=== PATIENT | female | born 1990 | race African-American/Black ===

== ENCOUNTER 2017-01-15 02:55 | Emergency (ER) | payer SELFPAY ==
[~2017-01-15] VITALS: Ht 172.7 cm; Wt 60.0 kg
[~2017-01-15 02:55] MED LIST: Z.0.NO CURRENT MEDS
[2017-01-15 02:56] VITALS: BP 117/71; PULSE 58; RESP 16; TEMP 97.9; O2SAT 100
[2017-01-15 04:40] LABS: AUTOMATED NEUTROPHIL # 4.3 TH/MM3 (1.8-7.7); BASOPHIL # 0.1 TH/MM3 (0-0.2); BASOPHIL % 0.7 % (0.0-2.0); EOSINOPHIL # 0.2 TH/MM3 (0-0.4); HEMO FLAGS DIFF FINAL; LYMPH % 35.8 % (9.0-44.0); LYMPHOCYTE # 2.7 TH/MM3 (1.0-4.8); MEAN CELL VOLUME 83.1 FL (80.0-100.0); MEAN CORPUSCULAR HEMOGLOBIN 27.1 PG (27.0-34.0); MEAN CORPUSCULAR HGB CONC 32.6 % (32.0-36.0); NEUT % 55.5 % (16.0-70.0); PLATELET COUNT 257 TH/MM3 (150-450); RED BLOOD COUNT 4.94 MIL/MM3 (4.00-5.30); RED CELL DISTRIBUTION WIDTH 13.7 % (11.6-17.2); WHITE BLOOD COUNT 7.7 TH/MM3 (4.0-11.0)
[2017-01-15 04:48] LABS: BACTERIA, URINE RARE /hpf; BLOOD, URINE TRACE (NEG); COMMENT (UR) CULT NOT INDICATED; CULTURE IF INDICATED CULT NOT INDICATED; GLUCOSE,URINE NEG (NEG); KETONE, URINE 10 mg/dL (NEG); MUCUS URINE FEW /lpf (OCC); NITRITE,URINE NEG (NEG); SQUAMOUS EPITHELIAL CELL URINE 1 /hpf (0-5); URINE COLOR LIGHT-YELLOW (YELLW/STRAW)
[2017-01-15 04:54] LABS: ANION GAP 11 MEQ/L (5-15); AST (GOT) 9 U/L (15-37); BLOOD UREA NITROGEN 7 MG/DL (7-18); CHLORIDE 105 MEQ/L (98-107); GLOMERULAR FILTRATION RATE 104 ML/MIN (>89); POTASSIUM 3.4 MEQ/L (3.5-5.1); SODIUM (NA) 140 MEQ/L (136-145)
[2017-01-15 04:55] LABS: ALT (GPT) 16 U/L (10-53)
[2017-01-15 04:57] LABS: ALKALINE PHOSPHATASE 54 U/L (45-117); TOTAL BILIRUBIN ADULT 0.7 MG/DL (0.2-1.0)
--- NOTE | 2017-01-15 05:07 | PD ---
HPI Chief Complaint: Abdominal Pain Time Seen by Provider: 04:12 Travel History International Travel<30 days: No Contact w/Intl Traveler<30days: No Traveled to known affect area: No History of Present Illness HPI To 26 year-old woman who presents to the emergency department complaining of abdominal pain. She's had right sided abdominal pain, more in the upper abdomen , with decreased appetite and early fullness for the past day or 2. She has bloating feeling, pain is a little worse after eating. No vomiting. She has had some nausea. No urinary symptoms. Her bowel movements are normal. She denies any abnormal vaginal discharge. She has on her menstrual cycle now. She sexually active with women only, to female partners in the past 6 months. He is a history of a diaphragmatic hernia that was repaired as a , but no complications or symptoms since then. History Past Medical History Medical History: Denies Significant Hx Tetanus Vaccination: Unknown Influenza Vaccination: No : 0 Social History Alcohol Use: Yes (SOCIALLY) Tobacco Use: Yes (SOCIALLY/MONTHLY) Allergies-Medications (Allergen,Severity, Reaction): Coded Allergies: No Known Allergies (Verified , 06/05/11) Reported Meds & Prescriptions Reported Meds & Active Scripts Active No Active Prescriptions or Reported Medications Review of Systems Except as stated in HPI: all other systems reviewed are Neg Physical Exam Narrative GENERAL: Well-appearing 26 year-old woman, no acute distress. SKIN: Focused skin assessment warm/dry. NECK: Trachea midline. No JVD. CARDIOVASCULAR: Regular rate and rhythm. No murmur appreciated. RESPIRATORY: No accessory muscle use. Clear to auscultation. Breath sounds equal bilaterally. GASTROINTESTINAL: Abdomen flat and soft. There is a large scar on the right upper abdomen. She has some right upper abdominal tenderness with guarding, as well as some right lower quadrant tenderness. She has negative Rovsing's, negative psoas sign but a positive obturator sign. Negative Gordon's. MUSCULOSKELETAL: No obvious deformities. No edema. NEUROLOGICAL: Awake and alert. No obvious cranial nerve deficits. Motor grossly within normal limits. Normal speech. PSYCHIATRIC: Appropriate mood and affect; insight and judgment normal. Data Data Last Documented VS Vital Signs Date Time Temp Pulse Resp B/P Pulse Ox O2 Delivery O2 Flow Rate FiO2 01/15/17 06:37 97.9 67 20 93/55 100 01/15/17 02:56 Room Air Orders Complete Blood Count With Diff (01/15/17 04:13) Comprehensive Metabolic Panel (01/15/17 04:13) Lipase (01/15/17 04:13) Urinalysis - C+S If Indicated (01/15/17 04:13) Iv Access Insert/Monitor (01/15/17 04:13) Ed Urine Pregnancytest Poc (01/15/17 04:13) Ed Poc Ultrasound (01/15/17 ) Us Abdomen Gallbladder (01/15/17 ) Ct Abd/Pel W Iv Contrast(Rout) (01/15/17 ) Diatrizoate Liq ( Gastroview Liq) (01/15/17 06:30) Oral Contrast - Adult (01/15/17 06:31) Labs Laboratory Tests Test 01/15/17 01/15/17 04:15 04:30 White Blood Count 7.7 TH/MM3 Red Blood Count 4.94 MIL/MM3 Hemoglobin 13.4 GM/DL Hematocrit 41.0 % Mean Corpuscular Volume 83.1 FL Mean Corpuscular Hemoglobin 27.1 PG Mean Corpuscular Hemoglobin 32.6 % Concent Red Cell Distribution Width 13.7 % Platelet Count 257 TH/MM3 Mean Platelet Volume 7.5 FL Neutrophils (%) (Auto) 55.5 % Lymphocytes (%) (Auto) 35.8 % Monocytes (%) (Auto) 6.0 % Eosinophils (%) (Auto) 2.0 % Basophils (%) (Auto) 0.7 % Neutrophils # (Auto) 4.3 TH/MM3 Lymphocytes # (Auto) 2.7 TH/MM3 Monocytes # (Auto) 0.5 TH/MM3 Eosinophils # (Auto) 0.2 TH/MM3 Basophils # (Auto) 0.1 TH/MM3 CBC Comment DIFF FINAL Differential Comment Sodium Level 140 MEQ/L Potassium Level 3.4 MEQ/L Chloride Level 105 MEQ/L Carbon Dioxide Level 24.0 MEQ/L Anion Gap 11 MEQ/L Blood Urea Nitrogen 7 MG/DL Creatinine 0.81 MG/DL Estimat Glomerular Filtration 104 ML/MIN Rate Random Glucose 76 MG/DL Calcium Level 9.0 MG/DL Total Bilirubin 0.7 MG/DL Aspartate Amino Transf 9 U/L (AST/SGOT) Alanine Aminotransferase 16 U/L (ALT/SGPT) Alkaline Phosphatase 54 U/L Total Protein 7.0 GM/DL Albumin 3.7 GM/DL Lipase 136 U/L Urine Color LIGHT-YELLOW Urine Turbidity CLEAR Urine pH 6.0 Urine Specific [place] 1.009 Urine Protein NEG mg/dL Urine Glucose (UA) NEG mg/dL Urine Ketones 10 mg/dL Urine Occult Blood TRACE Urine Nitrite NEG Urine Bilirubin NEG Urine Urobilinogen LESS THAN 2.0 MG/DL Urine Leukocyte Esterase SMALL Urine RBC LESS THAN 1 /hpf Urine WBC 2 /hpf Urine Squamous Epithelial 1 /hpf Cells Urine Bacteria RARE /hpf Urine Mucus FEW /lpf Microscopic Urinalysis Comment CULT NOT INDICATED MDM Medical Decision Making Medical Screen Exam Complete: Yes Emergency Medical Condition: Yes Interpretation(s) LABS: CBC: Unremarkable CMP: Unremarkable UA: Unremarkable Differential Diagnosis Cholecystitis, cholelithiasis, appendicitis, gastritis, PID, UTI, other Narrative Course Medical decision making 26 year-old woman presents emergent arm right sided abdominal pain, some tenderness, previous surgery. She seems to be more tender in the right upper quadrant she had some tenderness and guarding in the right lower quadrant as well. I attempted a bedside ultrasound was unable obtain views of the gallbladder. We'll check formal ultrasound, labs, urine, reassess. Patient flat out the oncoming provider at 7 AM, CT pending. Scripts No Active Prescriptions or Reported Meds Christophe Sanchez MD Jan 15, 2017 05:07
--- NOTE | 2017-01-15 06:22 | RADRPT ---
EXAM DATE/TIME: 01/15/2017 05:54 [facility] COMPARISON: No previous studies available for comparison. INDICATIONS : Right upper quadrant pain. MEDICAL HISTORY : Right upper quadrant pain. SURGICAL HISTORY : Diaphramatic hernia repair as infant. ENCOUNTER: Initial ACUITY: 3 days PAIN SCORE: 4/10 LOCATION: Right upper quadrant MEASUREMENTS: LIVER: 16.1 cm length COMMON DUCT: 3 mm RIGHT KIDNEY: 8.4 x 3.7 x 5.9 cm FINDINGS: The gallbladder is intact without any evidence for gallstones, gallbladder wall thickening, or perich olecystic fluid. The visualized liver, head of the pancreas appear grossly intact for technique. The re is a tiny 1.3 cm simple cyst in the right kidney. CONCLUSION: Unremarkable study. Yao Milan MD on January 15, 2017 at 6:19 Board Certified Radiologist. This report was verified electronically.
[2017-01-15] MEDS ORDERED: DIATRIZOATE MEGLUM/DIATRIZOATE SOD 9 ML CUP ONE (06:30)
[2017-01-15 06:37] VITALS: BP 93/55; PULSE 67; RESP 20; TEMP 97.9; O2SAT 100
--- NOTE | 2017-01-15 07:01 | PD ---
Physical Exam Date Seen by Provider: Jan 15, 2017 Time Seen by Provider: 06:59 Narrative The patient is a 26-year-old female was evaluated by Dr. Sanchez. The patient was signed out at [address] of the abdomen and pelvis pending. Please refer to the initial history, physical, diagnostic evaluation, treatment modality plan. Data Data Last Documented VS Vital Signs Date Time Temp Pulse Resp B/P Pulse Ox O2 Delivery O2 Flow Rate FiO2 01/15/17 07:10 16 01/15/17 06:37 97.9 67 93/55 100 01/15/17 02:56 Room Air Orders Complete Blood Count With Diff (01/15/17 04:13) Comprehensive Metabolic Panel (01/15/17 04:13) Lipase (01/15/17 04:13) Urinalysis - C+S If Indicated (01/15/17 04:13) Iv Access Insert/Monitor (01/15/17 04:13) Ed Urine Pregnancytest Poc (01/15/17 04:13) Ed Poc Ultrasound (01/15/17 ) Us Abdomen Gallbladder (01/15/17 ) Ct Abd/Pel W Iv Contrast(Rout) (01/15/17 ) Diatrizoate Liq ( Gastroview Liq) (01/15/17 06:30) Oral Contrast - Adult (01/15/17 06:31) Labs Laboratory Tests Test 01/15/17 01/15/17 04:15 04:30 White Blood Count 7.7 TH/MM3 Red Blood Count 4.94 MIL/MM3 Hemoglobin 13.4 GM/DL Hematocrit 41.0 % Mean Corpuscular Volume 83.1 FL Mean Corpuscular Hemoglobin 27.1 PG Mean Corpuscular Hemoglobin 32.6 % Concent Red Cell Distribution Width 13.7 % Platelet Count 257 TH/MM3 Mean Platelet Volume 7.5 FL Neutrophils (%) (Auto) 55.5 % Lymphocytes (%) (Auto) 35.8 % Monocytes (%) (Auto) 6.0 % Eosinophils (%) (Auto) 2.0 % Basophils (%) (Auto) 0.7 % Neutrophils # (Auto) 4.3 TH/MM3 Lymphocytes # (Auto) 2.7 TH/MM3 Monocytes # (Auto) 0.5 TH/MM3 Eosinophils # (Auto) 0.2 TH/MM3 Basophils # (Auto) 0.1 TH/MM3 CBC Comment DIFF FINAL Differential Comment Sodium Level 140 MEQ/L Potassium Level 3.4 MEQ/L Chloride Level 105 MEQ/L Carbon Dioxide Level 24.0 MEQ/L Anion Gap 11 MEQ/L Blood Urea Nitrogen 7 MG/DL Creatinine 0.81 MG/DL Estimat Glomerular Filtration 104 ML/MIN Rate Random Glucose 76 MG/DL Calcium Level 9.0 MG/DL Total Bilirubin 0.7 MG/DL Aspartate Amino Transf 9 U/L (AST/SGOT) Alanine Aminotransferase 16 U/L (ALT/SGPT) Alkaline Phosphatase 54 U/L Total Protein 7.0 GM/DL Albumin 3.7 GM/DL Lipase 136 U/L Urine Color LIGHT-YELLOW Urine Turbidity CLEAR Urine pH 6.0 Urine Specific [place] 1.009 Urine Protein NEG mg/dL Urine Glucose (UA) NEG mg/dL Urine Ketones 10 mg/dL Urine Occult Blood TRACE Urine Nitrite NEG Urine Bilirubin NEG Urine Urobilinogen LESS THAN 2.0 MG/DL Urine Leukocyte Esterase SMALL Urine RBC LESS THAN 1 /hpf Urine WBC 2 /hpf Urine Squamous Epithelial 1 /hpf Cells Urine Bacteria RARE /hpf Urine Mucus FEW /lpf Microscopic Urinalysis Comment CULT NOT INDICATED MDM Medical Record Reviewed: Yes Supervised Visit with JAENNETTE: No Interpretation(s) Last Impressions Gall Bladder Ultrasound 01/15/17 0000 Signed Impressions: Service Date/Time: Sunday, January 15, 2017 05:54 - CONCLUSION: Unremarkable study. Yao Milan MD Laboratory Tests Test 01/15/17 01/15/17 04:15 04:30 White Blood Count 7.7 TH/MM3 Red Blood Count 4.94 MIL/MM3 Hemoglobin 13.4 GM/DL Hematocrit 41.0 % Mean Corpuscular Volume 83.1 FL Mean Corpuscular Hemoglobin 27.1 PG Mean Corpuscular Hemoglobin 32.6 % Concent Red Cell Distribution Width 13.7 % Platelet Count 257 TH/MM3 Mean Platelet Volume 7.5 FL Neutrophils (%) (Auto) 55.5 % Lymphocytes (%) (Auto) 35.8 % Monocytes (%) (Auto) 6.0 % Eosinophils (%) (Auto) 2.0 % Basophils (%) (Auto) 0.7 % Neutrophils # (Auto) 4.3 TH/MM3 Lymphocytes # (Auto) 2.7 TH/MM3 Monocytes # (Auto) 0.5 TH/MM3 Eosinophils # (Auto) 0.2 TH/MM3 Basophils # (Auto) 0.1 TH/MM3 CBC Comment DIFF FINAL Differential Comment Sodium Level 140 MEQ/L Potassium Level 3.4 MEQ/L Chloride Level 105 MEQ/L Carbon Dioxide Level 24.0 MEQ/L Anion Gap 11 MEQ/L Blood Urea Nitrogen 7 MG/DL Creatinine 0.81 MG/DL Estimat Glomerular Filtration 104 ML/MIN Rate Random Glucose 76 MG/DL Calcium Level 9.0 MG/DL Total Bilirubin 0.7 MG/DL Aspartate Amino Transf 9 U/L (AST/SGOT) Alanine Aminotransferase 16 U/L (ALT/SGPT) Alkaline Phosphatase 54 U/L Total Protein 7.0 GM/DL Albumin 3.7 GM/DL Lipase 136 U/L Urine Color LIGHT-YELLOW Urine Turbidity CLEAR Urine pH 6.0 Urine Specific [place] 1.009 Urine Protein NEG mg/dL Urine Glucose (UA) NEG mg/dL Urine Ketones 10 mg/dL Urine Occult Blood TRACE Urine Nitrite NEG Urine Bilirubin NEG Urine Urobilinogen LESS THAN 2.0 MG/DL Urine Leukocyte Esterase SMALL Urine RBC LESS THAN 1 /hpf Urine WBC 2 /hpf Urine Squamous Epithelial 1 /hpf Cells Urine Bacteria RARE /hpf Urine Mucus FEW /lpf Microscopic Urinalysis Comment CULT NOT INDICATED Differential Diagnosis Differential diagnosis includes PID, cervicitis, UTI, possible fundus, nephrolithiasis, appendicitis, cholecystitis, ovarian cyst, ovarian torsion. Narrative Course The patient was initially evaluated by the previous physician, Dr. Sanchez. Please refer to the initial history, physical, diagnostic evaluation, treatment modality plan. The patient signed out at [address] the abdomen and pelvis pending. The patient's laboratory evaluation and ultrasound of the gallbladder were unremarkable. CT of the abdomen and pelvis was pending. The patient did not want to wait for CT the abdomen and pelvis was excessively signed out AGAINST MEDICAL ADVICE. The patient's vitals and labs were reviewed, patient is stable, patient has a competency to make a decision for herself. Procedures Procedure Narrative AMA: The risks of leaving against medical advice without further evaluation treatment were discussed with the patient. These risks include cardiac dysfunction, cardiac dysrhythmia, possible heart attack, possible stroke or . The patient indicated understanding of these risks and appeared to have the capacity to make this decision. Diagnosis Primary Impression: Abdominal pain Qualified Code: R10.31 - Right lower quadrant abdominal pain Patient Instructions: General Instructions Additional Instruction: Return if symptoms worsen or progress. Follow-up with her primary physician. Scripts No Active Prescriptions or Reported Meds Disposition: 07 AGAINST MEDICAL ADVICE Condition: Stable Juan Durham MD Jan 15, 2017 07:01
== END 2017-01-15 07:57 | disposition left against medical advice (07) ==
LOC: NEPC 02:55
DX: R10.31 Right lower quadrant pain (principal); Z72.0 Tobacco use
CPT/HCPCS: 76705; 80053; 81001; 83690; 84703; 85025; 99284; Q9963